=== PATIENT | male | born 1930 | race Caucasian/White ===

== ENCOUNTER 2016-11-30 08:55 | Emergency (ER) | payer MEDICARE ==
[2016-11-30 10:06] VITALS: BP 164/87
--- NOTE | 2016-11-30 11:10 | EDM.PDOC ---
ED HPI GENERAL MEDICAL PROBLEM - General Chief Complaint: Cardiovascular Problem Stated Complaint: hypertension Time Seen by Provider: 11/30/16 09:30 Source of Information: Reports: Patient History Limitations: Reports: No Limitations - History of Present Illness INITIAL COMMENTS - FREE TEXT/NARRATIVE: This is an 86yo M here for elevated BP and slight dizziness. He states he had adjusted his metoprolol 1 month ago and lowered the dose as he felt his BP was too low. He was asymptomatic at the time. Then he increased back to the regular dose as his BP was elevating quickly and has been on a full tablet of Metoprolol succinate for the past 1 week. His BP has been stable and controlled until this am when it elevated an hour after taking his medications. He recorded a BP of 175/106. Patient states he only felt a little dizziness that has resolved. He denies any current symptoms. He also stopped his terazosin a few weeks ago and has noticed an increase in urination at night from 5-6 times to 7-8 times a night. 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(s) - Related Data Allergies Allergy/AdvReac Type Severity Reaction Status Date / Time No Known Allergies Allergy Verified 03/02/15 12:04 Home Meds: Home Meds Warfarin [Coumadin] 5 mg PO ASDIRECTED 04/28/14 [History] Warfarin [Coumadin] 7.5 mg PO ASDIRECTED 04/28/14 [History] Metoprolol Succinate [Toprol XL] 25 mg PO DAILY 03/02/15 [History] Past Medical History - Past Health History Medical/Surgical History: Denies Medical/Surgical History HEENT History: Reports: Cataract Cardiovascular History: Reports: Afib, Hypertension Psychiatric History: Reports: Anxiety Oncologic (Cancer) History: Reports: Colon - Infectious Disease History Infectious Disease History: Reports: Hepatitis C - Past Surgical History GI Surgical History: Reports: Colonoscopy Social & Family History - Tobacco Use Smoking Status *Q: Never Smoker Years of Tobacco use: 20 Packs/Tins Daily: 1 Used Tobacco, but Quit: Yes Month Tobacco Last Used: 20 YEARS AGO Second Hand Smoke Exposure: No - Alcohol Use Days Per Week of Alcohol Use: 0 - Recreational Drug Use Recreational Drug Use: No ED ROS GENERAL - Review of Systems Review Of Systems: ROS reveals no pertinent complaints other than HPI. ED EXAM, GENERAL - Physical Exam Exam: See Below Exam Limited By: No Limitations General Appearance: Alert, WD/WN, No Apparent Distress Eye Exam: Bilateral Eye: EOMI, PERRL Ears: Normal External Exam Nose: Normal Inspection Throat/Mouth: Normal Inspection Head: Atraumatic, Normocephalic Neck: Normal Inspection Respiratory/Chest: No Respiratory Distress, Lungs Clear, Normal Breath Sounds Cardiovascular: Normal Peripheral Pulses, Regular Rate, Rhythm, No Edema Peripheral Pulses: 2+: Dorsalis Pedis (L), Dorsalis Pedis (R) GI/Abdominal: Normal Bowel Sounds Extremities: Normal Inspection Neurological: Alert, Oriented, CN II-XII Intact Psychiatric: Normal Affect, Normal Mood Skin Exam: Warm, Dry, Intact Course - Vital Signs Last Recorded V/S: Last Vital Signs Temp 36.3 C 11/30/16 09:20 Pulse 57 L 11/30/16 10:04 Resp 18 11/30/16 09:20 BP 164/87 H 11/30/16 10:04 Pulse Ox 99 11/30/16 09:20 Departure - Departure Time of Disposition: 10:30 Disposition: Home, Self-Care 01 Condition: Good Clinical Impression: Elevated blood pressure reading, Dizziness Instructions: Hypertension, [id number] Referrals: PCP,None [Primary Care Provider] - Forms: ED Department Discharge Additional Instructions: Restart Terazosin that you were taking at home. Only take blood pressure 2-3 times a day. Continue taking Metoprolol 25mg daily. Make a follow up appointment with Dr. Julian in 2 weeks. Tell the clinic that it's an ER follow up. Counseled on supportive and conservative care. Discussed fluid intake and to decrease to 4 x 8oz of water daily as he has been taking increasing amounts of water. Discussed medication compliance and BP checks and diary and to do no more than 3-4 BP reading a day instead of 10-15 that he is already doing. His BP has been stable the past week with only 3 elevated reading in total out of 40 + readings. Counseled on close monitoring as needed and f/u in clinic for recheck and f/u in ER as needed.
== END 2016-11-30 10:28 | disposition home or self-care (01) ==
LOC: LB.ED 08:55
DX: R42 Dizziness and giddiness (principal); R03.0 Elevated blood-pressure reading, without diagnosis of hypertension; I48.91 Unspecified atrial fibrillation; F41.9 Anxiety disorder, unspecified; Z79.01 Long term (current) use of anticoagulants
CPT/HCPCS: 99283

== ENCOUNTER 2019-10-15 09:12 | Emergency (ER) | payer OTHER, MEDICARE ==
--- NOTE | 2019-10-15 10:37 | EDM.PDOC ---
ED HPI GENERAL MEDICAL PROBLEM - General Chief Complaint: General Stated Complaint: FATIGUE Time Seen by Provider: 10/15/19 09:30 Source of Information: Reports: Patient History Limitations: Reports: Other (very [place]) - History of Present Illness INITIAL COMMENTS - FREE TEXT/NARRATIVE: Patient has been feeling fatigues x 3 weeks, today he was so weak and fatigued he presents to the ED. Denies any CP, SOB, abdominal pain, blood in stool, urinary symptoms. He is having a work up on his left leg at the [facility] for circulation issues. He takes warfarin for afib. Denies cough/fever Onset: Gradual Onset Date: 09/24/19 Duration: Getting Worse Improves with: Reports: None Worsens with: Reports: Movement Associated Symptoms: Reports: Shortness of Breath, Weakness - Related Data Allergies Allergy/AdvReac Type Severity Reaction Status Date / Time No Known Allergies Allergy Verified 11/30/16 15:38 Home Meds: Home Meds Warfarin [Coumadin] 5 mg PO ASDIRECTED 04/28/14 [History] Warfarin [Coumadin] 7.5 mg PO WEEKLY 04/28/14 [History] Terazosin [Hytrin] 2 mg PO BEDTIME 10/15/19 [History] clonazePAM [Clonazepam] 0.5 mg PO BID 10/15/19 [History] lisinopriL [Lisinopril] 5 mg PO DAILY 10/15/19 [History] Past Medical History - Past Health History Medical/Surgical History: Denies Medical/Surgical History HEENT History: Reports: Cataract Cardiovascular History: Reports: Afib, Hypertension Psychiatric History: Reports: Anxiety Oncologic (Cancer) History: Reports: Colon - Infectious Disease History Infectious Disease History: Reports: Hepatitis C - Past Surgical History GI Surgical History: Reports: Colonoscopy ED ROS GENERAL - Review of Systems Review Of Systems: See Below Constitutional: Reports: Fatigue HEENT: Reports: No Symptoms Respiratory: Reports: No Symptoms Cardiovascular: Reports: No Symptoms Endocrine: Reports: No Symptoms GI/Abdominal: Reports: No Symptoms : Reports: No Symptoms Musculoskeletal: Reports: No Symptoms Skin: Reports: No Symptoms Neurological: Reports: No Symptoms Psychiatric: Reports: No Symptoms Hematologic/Lymphatic: Reports: No Symptoms ED EXAM, GENERAL - Physical Exam Exam: See Below Exam Limited By: No Limitations General Appearance: Alert, No Apparent Distress Ears: Normal External Exam Throat/Mouth: Normal Voice, No Airway Compromise Head: Atraumatic Neck: Normal Inspection, Full Range of Motion Respiratory/Chest: No Respiratory Distress, Lungs Clear, Chest Non-Tender Cardiovascular: No Edema, No Murmur, Bradycardia, Irregularly Irregular Peripheral Pulses: 3+: Radial (L), Radial (R), Dorsalis Pedis (L), Dorsalis Pedis (R) GI/Abdominal: Normal Bowel Sounds, Soft, Non-Tender Back Exam: Normal Inspection. No: CVA Tenderness (R), CVA Tenderness (L) Extremities: Normal Inspection, No Pedal Edema, Normal Capillary Refill Neurological: Alert, Oriented Psychiatric: Normal Affect Skin Exam: Warm, Dry, Intact Course - Vital Signs Last Recorded V/S: Last Vital Signs Temp 97.5 F 10/15/19 10:56 Pulse 60 10/15/19 14:34 Resp 18 10/15/19 14:34 BP 158/77 H 10/15/19 14:34 Pulse Ox 98 10/15/19 14:34 - Orders/Labs/Meds Labs: Laboratory Tests 10/15/19 10/15/19 10/15/19 Range/Units 10:00 10:24 10:24 WBC 5.5 (4.0-11.0) K/uL RBC 4.39 L (4.50-6.50) M/uL Hgb 14.4 (13.0-18.0) g/dL Hct 41.4 (40.0-54.0) % MCV 94 (76-96) fL MCH 32.8 H (27.0-32.0) pg MCHC 34.8 (31.0-35.0) g/dL RDW 13.3 (11.0-16.0) % Plt Count 159 D (150-400) K/uL MPV 10.5 H (6.0-10.0) fL Neut % (Auto) 68.7 (45.0-70.0) % Lymph % (Auto) 20.3 (20.0-40.0) % [place] % (Auto) 9.5 (3.0-10.0) % Eos % (Auto) 1.1 (1.0-5.0) % Baso % (Auto) 0.4 (0.0-0.5) % Neut # (Auto) 3.77 (2.00-7.50) K/uL Lymph # (Auto) 1.11 L (1.50-4.00) K/uL Swift # (Auto) 0.52 (0.20-0.80) K/uL Eos # (Auto) 0.06 (0.04-0.40) K/uL Baso # (Auto) 0.02 (0.02-0.10) K/uL PT (9.0-11.5) sec INR (1.0-3.5) Sodium 136 (136-145) mmol/L Potassium 4.1 (3.5-5.1) mmol/L Chloride 101 (98-107) mmol/L Carbon Dioxide 28.1 (21.0-32.0) mmol/L Anion Gap 11.0 (5.0-15.0) mmol/L BUN 17 D (8-26) mg/dL Creatinine 0.94 (0.70-1.30) mg/dL Est Cr Clr Drug Dosing 39.41 mL/min Estimated GFR (MDRD) > 60 (>60) MLS/MIN BUN/Creatinine Ratio 18.1 (6-25) Glucose 118 H (74-100) mg/dL Calcium 8.6 (8.5-10.1) mg/dL Total Bilirubin 0.9 (0.0-1.0) mg/dL AST 17 (15-37) U/L ALT 28 (12-78) U/L Alkaline Phosphatase 68 (46-116) U/L Troponin I < 0.017 (0.000-0.060) ng/mL Total Protein 7.2 (6.4-8.2) g/dL Albumin 3.8 (3.4-5.0) g/dL Globulin 3.4 (2.2-4.2) g/dL Albumin/Globulin Ratio 1.1 (0.8-2.0) Urine Color Urine Appearance (CLEAR) Urine pH (5.0-8.0) Ur Specific [place] (1.003-1.030) Urine Protein (NEGATIVE) mg/dL Urine Glucose (UA) (NEGATIVE) mg/dL Urine Ketones (NEGATIVE) mg/dL Urine Occult Blood (NEGATIVE) Urine Nitrite (NEGATIVE) Urine Bilirubin (NEGATIVE) Urine Urobilinogen (0.2-1.0) E.U./dL Ur Leukocyte Esterase (NEGATIVE) Urine RBC /HPF Urine WBC /HPF COVID-19 (ANDRESSA) 10/15/19 10/15/19 10/15/19 Range/Units 10:24 10:40 10:45 WBC (4.0-11.0) K/uL RBC (4.50-6.50) M/uL Hgb (13.0-18.0) g/dL Hct (40.0-54.0) % MCV (76-96) fL MCH (27.0-32.0) pg MCHC (31.0-35.0) g/dL RDW (11.0-16.0) % Plt Count (150-400) K/uL MPV (6.0-10.0) fL Neut % (Auto) (45.0-70.0) % Lymph % (Auto) (20.0-40.0) % Swift % (Auto) (3.0-10.0) % Eos % (Auto) (1.0-5.0) % Baso % (Auto) (0.0-0.5) % Neut # (Auto) (2.00-7.50) K/uL Lymph # (Auto) (1.50-4.00) K/uL Swift # (Auto) (0.20-0.80) K/uL Eos # (Auto) (0.04-0.40) K/uL Baso # (Auto) (0.02-0.10) K/uL PT 20.7 H (9.0-11.5) sec INR 2.0 (1.0-3.5) Sodium (136-145) mmol/L Potassium (3.5-5.1) mmol/L Chloride (98-107) mmol/L Carbon Dioxide (21.0-32.0) mmol/L Anion Gap (5.0-15.0) mmol/L BUN (8-26) mg/dL Creatinine (0.70-1.30) mg/dL Est Cr Clr Drug Dosing mL/min Estimated GFR (MDRD) (>60) MLS/MIN BUN/Creatinine Ratio (6-25) Glucose (74-100) mg/dL Calcium (8.5-10.1) mg/dL Total Bilirubin (0.0-1.0) mg/dL AST (15-37) U/L ALT (12-78) U/L Alkaline Phosphatase (46-116) U/L Troponin I (0.000-0.060) ng/mL Total Protein (6.4-8.2) g/dL Albumin (3.4-5.0) g/dL Globulin (2.2-4.2) g/dL Albumin/Globulin Ratio (0.8-2.0) Urine Color Yellow Urine Appearance Clear (CLEAR) Urine pH 7.5 (5.0-8.0) Ur Specific [place] 1.020 (1.003-1.030) Urine Protein Negative (NEGATIVE) mg/dL Urine Glucose (UA) Negative (NEGATIVE) mg/dL Urine Ketones Negative (NEGATIVE) mg/dL Urine Occult Blood Negative (NEGATIVE) Urine Nitrite Negative (NEGATIVE) Urine Bilirubin Negative (NEGATIVE) Urine Urobilinogen 0.2 (0.2-1.0) E.U./dL Ur Leukocyte Esterase Negative (NEGATIVE) Urine RBC Not seen /HPF Urine WBC Not seen /HPF COVID-19 (ANDRESSA) Negative Meds: Medications Discontinued Medications Generic Name Dose Route Start Last Admin Trade Name Freq PRN Reason Stop Dose Admin Clonazepam 0.5 mg 10/15/19 14:00 10/15/19 14:04 Klonopin PO 10/15/19 14:01 0.5 mg ONETIME ONE Administration Clonazepam Confirm 10/15/19 14:12 10/15/19 14:33 Klonopin Administered 10/15/19 14:13 Not Given Dose 0.5 mg .ROUTE .STK-MED ONE Sodium Chloride 500 mls @ 500 mls/hr 10/15/19 11:15 10/15/19 11:12 Normal Saline IV 500 mls/hr ASDIRECTED AKASH Administration Departure - Departure Time of Disposition: 15:40 Disposition: Home, W Home Health Agency 06 Condition: Good Clinical Impression: Weakness generalized, Bradycardia - Discharge Information *PRESCRIPTION DRUG MONITORING PROGRAM REVIEWED*: No *COPY OF PRESCRIPTION DRUG MONITORING REPORT IN PATIENT DIAMOND: No Instructions: Fatigue Referrals: PCP,None [Primary Care Provider] - Forms: ED Department Discharge, Interfacility Transfer EMTALA Additional Instructions: [facility] amb coming from [place] to transport to [place], ETA 1500. Sepsis Event Note (ED) - Evaluation Sepsis Screening Result: No Definite Risk
[2019-10-15] MEDS: Sodium Chloride 0.9% 500 ML IV SCH (11:12)
[2019-10-15] MEDS: ClonazePAM 0.5 MG Tab PO ONE (14:04)
[2019-10-15] MEDS: ClonazePAM 0.5 MG Tab ONE (14:33)
[2019-10-15 14:35] VITALS: BP 158/77; PULSE 60
== END 2019-10-15 16:10 | disposition home health service (06) ==
LOC: LB.ED 09:12
DX: R00.1 Bradycardia, unspecified (principal); R53.1 Weakness; I10 Essential (primary) hypertension; I48.91 Unspecified atrial fibrillation; F41.9 Anxiety disorder, unspecified; Z79.899 Other long term (current) drug therapy; Z20.828 Contact with and (suspected) exposure to other viral communicable diseases
CPT/HCPCS: 36415; 80053; 81001; 84484; 85025; 85610; 87635; 93005; 99285; A9270; J7050; U0002